=== PATIENT | male | born 1970 | race Caucasian/White ===

== ENCOUNTER 2022-03-07 00:31 | Emergency (ER) | payer OTHER ==
[~2022-03-07] VITALS: Ht 182.9 cm; Wt 113.4 kg
== END 2022-03-07 04:38 | disposition home or self-care (01) ==
LOC: ER 00:31
DX: S00.83XA Contusion of other part of head, initial encounter (principal); W19.XXXA Unspecified fall, initial encounter; Y93.89 Activity, other specified; Y92.413 State road as the place of occurrence of the external cause; Y99.9 Unspecified external cause status